=== PATIENT | female | born 1990 | race Caucasian/White ===

== ENCOUNTER 2018-10-05 12:06 | Inpatient (IN) | payer BC ==
[2018-10-05] MEDS: LACTATED RINGER'S 1,000 ML IV ×2 (12:44→16:48)
[2018-10-05] MEDS ORDERED: CARBOPROST 250 MCG INJ IM ×2 (13:00→18:00)
[2018-10-05] MEDS ORDERED: METHYLERGONOVINE 0.2 MG INJ IM ×2 (13:00→18:00)
[2018-10-05] MEDS ORDERED: MISOPROSTOL 200 MCG TAB PR ×2 (13:00→18:00)
[2018-10-05] MEDS ORDERED: CEFAZOLIN 2 GM/50 ML (PMX) 50 ML IVPB (13:00)
[2018-10-05] MEDS ORDERED: OXYTOCIN 30 UNITS/LR 500 ML IV ×2 (13:00→18:00)
[2018-10-05 13:08] LABS: ADD MAN DIFF? NO
[2018-10-05 13:11] LABS: WHITE BLOOD COUNT 6.7 10^3/ul (4.8-10.8)
[2018-10-05 13:11] LABS: BASOPHILS % 0.4 % (0.0-2.0); EOSINOPHILS % 0.6 % (0.0-7.0); HEMATOCRIT 32.4 % (37.0-47.0); HEMOGLOBIN 10.2 g/dl (12.0-16.0); LYMPHOCYTES # 1.3 10^3/ul (0.8-2.9); LYMPHOCYTES % 19.4 % (15.0-51.0); MEAN CORPUSCULAR HEMOGLOBIN 25.8 pg (29.0-33.0); MEAN CORPUSCULAR HGB CONC 31.5 g/dl (32.0-37.0); MEAN PLATELET VOLUME 12.9 fl (7.4-10.4); MONOCYTE # 0.5 10^3/ul (0.3-0.9); MONOCYTES % 7.9 % (0.0-11.0); NEUTROPHIL # 4.8 10^3/ul (1.6-7.5); NEUTROPHILS % 71.6 % (39.0-77.0); PLATELET COUNT 165 10^3/UL (140-415); RED BLOOD COUNT 3.95 10^6/ul (4.20-5.40); RED CELL DISTRIBUTION WIDTH 13.5 % (11.5-14.5)
[2018-10-05 13:30] LABS: INR 0.91; PROTIME 12.4 Sec (11.9-14.9)
[2018-10-05 13:31] LABS: GLUCOSE 78 mg/dl (70-220)
[2018-10-05 13:31] LABS: PARTIAL THROMBOPLASTIN TIME 25.7 Sec (23.0-35.0)
[2018-10-05] MEDS: CITRIC ACID/NA CITRATE 30 ML CUP PO (17:39)
[2018-10-05] MEDS ORDERED: FENTAnyl 50 MCG/ML VIAL (17:54)
[2018-10-05] MEDS ORDERED: METOCLOPRAMIDE 10 MG INJ ×2 (17:54→22:10)
[2018-10-05] MEDS ORDERED: morphine SULFATE/PF (10 MG/10 ML) INJ (17:54)
[2018-10-05] MEDS ORDERED: OXYTOCIN 10 UNIT INJ (17:54)
[2018-10-05] MEDS ORDERED: NACL 0.9% 3 ML SYG IV (18:00)
[2018-10-05] MEDS ORDERED: KETOROLAC 30 MG INJ IV (18:00)
[2018-10-05] MEDS ORDERED: KETAMINE (50 MG/ML) 10 ML VIAL (19:37)
[2018-10-05] MEDS ORDERED: MIDAZOLAM 1 MG/ML 2 ML INJ (19:46)
[2018-10-05] MEDS ORDERED: EPHEDrine 25 MG/5 ML SYG IV (20:00)
[2018-10-05] MEDS ORDERED: NALBUPHINE HCL (10 MG/1 ML) INJ IV (20:00)
[2018-10-05] MEDS ORDERED: FENTAnyl 50 MCG/ML VIAL IV ×3 (20:00)
[2018-10-05] MEDS ORDERED: LABETALOL HCL 20MG INJ IV (20:00)
[2018-10-05] MEDS ORDERED: ALBUTEROL 0.083% (NEB) 2.5 MG/3 ML AMP HHN (20:00)
[2018-10-05] MEDS ORDERED: morphine 2 MG INJ IV ×2 (20:00)
[2018-10-05] MEDS ORDERED: HYDROmorphONE 1 MG/5 ML IV SYRINGE IV ×3 (20:00)
[2018-10-05] MEDS ORDERED: ONDANSETRON 4 MG INJ IV (20:00)
[2018-10-05] MEDS ORDERED: hydrALAzine 20 MG INJ IV (20:00)
[2018-10-05] MEDS ORDERED: NALOXONE (0.4 MG/ML) INJ IV (20:00)
[2018-10-05] MEDS ORDERED: TRIMETHOBENZAMIDE 100 MG/ML VIAL IM ×2 (20:00)
[2018-10-05] MEDS ORDERED: MEPERIDINE 25 MG INJ IV (20:00)
[2018-10-05] MEDS ORDERED: IPRATROPIUM (NEB) 0.5 MG/2.5 ML AMP HHN (20:00)
[2018-10-05] MEDS ORDERED: DIPHENHYDRAMINE 50 MG INJ IV (20:00)
[2018-10-05 20:21] LABS: RAPID PLASMA REAGIN NONREACTIVE (NR)
[2018-10-05] MEDS: ONDANSETRON 4 MG INJ IV (20:35)
[2018-10-05] MEDS: OXYTOCIN 30 UNITS/LR 500 ML IV (20:38)
[2018-10-05] MEDS: KETOROLAC 30 MG INJ IV (21:36)
[2018-10-05] MEDS: METOCLOPRAMIDE 10 MG INJ IV (22:14)
[2018-10-06] MEDS: LACTATED RINGER'S 1,000 ML IV ×4 (00:40→16:28)
[2018-10-06] MEDS: DIPHENHYDRAMINE 50 MG INJ IV ×3 (01:36→14:51)
[2018-10-06] MEDS: LANOLIN HPA 1 PKT TOP (01:36)
[2018-10-06] MEDS: CEFAZOLIN 1 GM/50 ML (PMX) 50 ML IVPB ×4 (01:36→18:12)
[2018-10-06] MEDS: KETOROLAC 30 MG INJ IV ×3 (06:14→18:12)
[2018-10-06 07:12] LABS: ADD MAN DIFF? NO
[2018-10-06 07:20] LABS: ABNORMAL IP MESSAGE 1; BASOPHILS % 0.1 % (0.0-2.0); EOSINOPHILS % 0.1 % (0.0-7.0); HEMATOCRIT 29.1 % (37.0-47.0); HEMOGLOBIN 9.2 g/dl (12.0-16.0); LYMPHOCYTES # 1.1 10^3/ul (0.8-2.9); LYMPHOCYTES % 13.6 % (15.0-51.0); MEAN CORPUSCULAR HEMOGLOBIN 25.5 pg (29.0-33.0); MEAN CORPUSCULAR HGB CONC 31.6 g/dl (32.0-37.0); MEAN CORPUSCULAR VOLUME 80.6 fl (82.0-101.0); MEAN PLATELET VOLUME 13.2 fl (7.4-10.4); MONOCYTE # 0.6 10^3/ul (0.3-0.9); MONOCYTES % 7.5 % (0.0-11.0); NEUTROPHIL # 6.2 10^3/ul (1.6-7.5); NEUTROPHILS % 78.4 % (39.0-77.0); PLATELET COUNT 136 10^3/UL (140-415); RED BLOOD COUNT 3.61 10^6/ul (4.20-5.40); RED CELL DISTRIBUTION WIDTH 13.7 % (11.5-14.5)
[2018-10-06 07:20] LABS: WHITE BLOOD COUNT 7.9 10^3/ul (4.8-10.8)
[2018-10-06 07:31] LABS: POSITIVE DIFF @See below
[2018-10-06] MEDS: IBUPROFEN 600 MG TAB PO (21:55)
[2018-10-07] MEDS ORDERED: traMADol-APAP 37.5-325 1 TAB PO (02:30)
[2018-10-07] MEDS ORDERED: SENNA TAB PO (02:30)
[2018-10-07] MEDS: HYDROCODONE/APAP (5/325) TAB PO ×2 (03:04→16:22)
[2018-10-07] MEDS: traMADol 50 MG TAB PO (03:04)
[2018-10-07] MEDS: SENNA/DOCUSATE NA (8.6MG/50MG) TAB PO (04:06)
[2018-10-07] MEDS: LACTATED RINGER'S 1,000 ML IV ×2 (04:44→12:44)
[2018-10-07] MEDS: IBUPROFEN 600 MG TAB PO ×3 (05:27→22:09)
[2018-10-08] MEDS: HYDROCODONE/APAP (5/325) TAB PO ×2 (02:40→11:51)
[2018-10-08] MEDS: IBUPROFEN 600 MG TAB PO (06:09)
== END 2018-10-08 15:05 | disposition home or self-care (01) | DRG 788 ==
LOC: L-D 12:06 → PP1 22:18 → L-D 22:23 → PP1 23:09
PROVIDERS: Obstetrics & Gynecology
PROC: 10D00Z1 Extraction of Products of Conception, Low, Open Approach (ICD-10-PCS; principal; 2018-10-05 17:00)
DX: O65.5 Obstructed labor due to abnormality of maternal pelvic organs (principal); O34.211 Maternal care for low transverse scar from previous cesarean delivery; Z3A.38 38 weeks gestation of pregnancy; Z37.0 Single live birth
CPT/HCPCS: 82947; 85025; 85610; 85730; 86592; 86850; 86900; 86901; 99464